=== PATIENT | female | born 1990 | race Caucasian/White ===

== ENCOUNTER 2024-02-17 08:14 | Emergency (ER) | payer MEDICAID, SELFPAY ==
--- NOTE | ~2024-02-17 | CT_ITS ---
EXAMINATION: CT ABDOMEN AND PELVIS WITH CONTRAST CLINICAL INFORMATION: Abdominal pain COMPARISON: None available. TECHNIQUE: Multidetector volumetric images were obtained from the superior aspect of the liver through the pubic symphysis following administration 85 mL of Omnipaque 350 intravenous contrast. Sagittal and coronal reformatted images were obtained on the technologist's workstation. Oral contrast: No This CT examination was performed using dose optimization techniques as appropriate, variously including the following: *Automated exposure control *Adjustment of mA and/or kV according to patient size (this includes techniques or standardized protocols for targeted exams where dose is matched to indication/reason for exam; i.e. extremities or head) *Use of iterative reconstruction technique DLP: 354 mGy-cm FINDINGS: LUNG BASES: No acute airspace disease or gross pulmonary nodules in the included lungs. LIVER, GALLBLADDER, AND BILIARY TREE: Liver measures 17 cm. No focal mass. Portal vein and hepatic veins and intrahepatic portion of the IVC are patent. No intra or extra hepatic biliary ductal dilatation. No pericholecystic fluid collection or gallbladder wall thickening. PANCREAS: No enhancing lesion. No peripancreatic fluid collection. No main pancreatic ductal dilatation. SPLEEN: 8 cm. No focal mass. ADRENAL GLANDS: No nodular lesions. KIDNEYS AND URETERS: Normal enhancement of the renal parenchyma. No renal mass. No hydronephrosis. BLADDER: Fluid-filled nearly collapsed. GASTROINTESTINAL TRACT: There is diffuse concentric edematous wall/wall thickening with pericolonic edema pattern trace of fluid extending from the rectum to the splenic colonic flexure resulting in narrowed lumen. No diverticula. No peripheral enhancing fluid collection, peritoneal cavity. No intestinal obstruction pattern. No pneumatosis intestinalis. No pneumoperitoneum. I cannot clearly identify the appendix, no pericecal edema pattern. ABDOMINAL WALL: No gross hernia. LYMPH NODES: No gross lymphadenopathy, retroperitoneal. VASCULAR: No aneurysm or dissection, abdominal aorta. PELVIC VISCERA: Dominant follicle, right adnexa. OSSEOUS STRUCTURES: No acute fracture or listhesis. Spina bifida occulta, S1 and S2. CT/CT abdomen pelvis w IV con IMPRESSION: Concerning ulcerative colitis versus inflammatory bowel disease involving the rectosigmoid colon and to a lesser extent left hemicolon. Fleischner guidelines were followed. Electronically signed by: Arcenio Woodard MD 02/17/2024 10:10 AM EST
[2024-02-17 08:18] VITALS: BP 121/76; PULSE 106; RESP 18; TEMP 36.6; O2SAT 99; BMI 20.7
--- NOTE | 2024-02-17 08:27 | ED.GENADULT ---
HPI - General Adult General Chief complaint: Nausea/Vomiting/Diarrhea Stated complaint: Diarrhea, weakness Time Seen by Provider: 02/17/24 08:26 Source: patient and family (patient's mother) Mode of arrival: ambulatory Limitations: no limitations History of Present Illness ED Provider: Rupal Cooper PA-C HPI narrative: Patient is a 33 year old assigned female at with no reported medical history presenting to the emergency department today with diarrhea and intermittent abdominal pain. Patient states that over the last month she has had diarrhea. Patient states that she was being treated for a dental infection with clindamycin and has had diarrhea ever since. Patient states that she is having intermittent abdominal pain but none presently. Patient denies any dizziness, lightheadedness, nausea, vomiting, fever, chills, blurry vision, double vision, loss of vision, chest pain, difficulty breathing, shortness of breath, back pain, night sweats, pain with urination, increased urinary frequency, increased urinary urgency, blood in her urine or stool, syncope or a near syncopal episode, recent trauma or falls, bowel incontinence, bladder incontinence, or any other complaints at this time. Onset (ago): month(s) (1) Relieving factors: none Exacerbating factors: none Associated symptoms: denies other symptoms Treatments prior to arrival: none Related Data Previous Rx's ?Medication ?Instructions ?Recorded prednisone 20 mg tablet 20 mg PO DAILY 7 days #7 tabs 02/17/24 vancomycin 125 mg capsule 125 mg PO QID 10 days #40 caps 02/17/24 Allergies Allergy/AdvReac Type Severity Reaction Status Date / Time amoxicillin [AMOXICILLIN] Allergy Unknown HIVES Verified 02/17/24 08:20 Review of Systems Constitutional: Constitutional: Reports no additional constitutional complaints, Denies chills, Denies fever(s) and Denies night sweats Eyes: Eyes: Reports no additional eye complaints, Denies blurry vision, Denies change in vision, Denies diplopia, Denies eye discharge, Denies loss of vision and Denies eye pain ENT: Denies dizziness Cardiovascular: Cardiovascular: Reports no additional cardiovascular complaints, Denies chest pain, Denies lightheadedness, Denies Loss of Consciousness and Denies dyspnea Respiratory: Respiratory: Reports no additional respiratory complaints and Denies dyspnea Gastrointestinal: Gastrointestinal: Reports no additional gastrointestinal complaints, Reports abdominal pain (intermittent), Denies melena, Denies hematochezia, Reports change in bowel habits, Reports change in stool character and Reports diarrhea Genitourinary: Genitourinary: Denies hematuria, Denies urinary frequency, Denies dysuria, Denies urinary incontinence, Denies urinary hesitancy and Denies urinary urgency Musculoskeletal: Musculoskeletal: Reports no additional musculoskeletal complaints, Denies numbness and Denies tingling Neurologic: Denies dizziness, Denies loss of vision, Denies numbness and Denies tingling Psychiatric: Psychiatric: Reports no additional psychiatric complaints Endocrine: Endocrine: Reports no additional endocrine complaints Hematologic/Lymphatic: Hematologic/Lymphatic: Reports no additional hematologic/lymphatic complaints Allergic/Immunologic: Allergic/Immunologic: Reports no additional allergic/immunologic complaints PMFSH Past Medical History Attestation statement: The following information was validated with the patient. (all information validated with the patient's mother) Source: old records reviewed, obtained from family (patient's mother provided additional history and confirmed the history provided by the patient) and nursing notes reviewed Social History Social History Advance Directives: No Advance Directives Information Provided: Yes Physical Exam ED Vital Signs: Vital Signs - 24 hr 02/17/24 08:18 02/17/24 09:59 Temperature 97.9 F 98.2 F Pulse Rate 106 H 89 Respiratory Rate 18 16 Blood Pressure 121/76 118/66 Pulse Oximetry 99 100 Oxygen Delivery Method Room Air Room Air BMI result Body Mass Index 20.7 Const General: cooperative, no acute distress, alert and awake Nutritional Appearance: well nourished Orientation/consciousness: patient oriented x3 Limitations: no limitations [facility] Head: Yes normal to inspection and Yes atraumatic Ears: hearing grossly normal bilaterally and external ears normal General nose exam: Normal external nose present, no nasal discharge noted and no epistaxis Face and sinus: Yes normal facial exam, No abrasion and No laceration Mouth: Normal oral and palatal mucosa present, no drooling and no muffled voice Eyes General: appearance normal, both eyes and all related structures Periorbital: periorbital findings normal Eyelids: Yes eyelids normal Conjunctivae: conjunctivae normal Pupils: Equal, round and reactive pupils present EOM: EOMs intact bilaterally Neck Neck: Yes normal visual inspection, Yes full ROM and Yes no lymphadenopathy Chest Chest palpation & inspection: normal inspection of the chest Resp Effort & Inspection: normal respiratory effort and able to speak in complete sentences GI Inspection: Yes normal to inspection Palpation (GI): Soft to palpation, not firm, nontender, no guarding and not rigid Neuro General: patient oriented x3 and moves all extremities Cranial nerves: Yes Equal, round and reactive pupils present Cognition (Neuro): normal cognition Extrem General: Yes normal to inspection, Yes full ROM and Yes capillary refill normal Psych Appearance: grossly normal Mental Status: mental status grossly normal Affect: normal affect Attitude: cooperative Thought process: Normal thought process present Thought content: Normal thought content present Insight: Good insight present (Psych) Medications Administered Discontinued Medications Generic Name Dose Route Start Last Admin Trade Name Freq PRN Reason Stop Dose Admin Metronidazole 500 mg in 100 mls @ 100 mls/hr 02/17/24 09:32 02/17/24 11:01 Flagyl IV 02/17/24 10:31 Infused ONCE ONE Infusion Iohexol 100 ml 02/17/24 09:48 02/17/24 09:49 Iohexol 350 Mg/Ml 100 Ml Infus..Btl IV 02/17/24 09:49 85 ml ONCE ONE Administration Potassium Chloride 40 meq 02/17/24 11:51 02/17/24 11:58 Potassium Chloride Packet 20 Meq Packet PO 02/17/24 11:52 40 meq ONCE ONE Administration Vancomycin HCl 125 mg 02/17/24 09:32 02/17/24 10:01 Vancomycin Hcl 125 Mg Capsule PO 02/17/24 09:33 125 mg ONCE ONE Administration Medical Decision Making Medical Decision Making [facility] Narrative: Patient is a 33 year old assigned female at with no reported medical history presenting to the emergency department today with diarrhea and intermittent abdominal pain. Patient's physical exam was as noted in the physical exam portion of this note. Patient's blood work showed an elevated WBC count of 23.3 but otherwise unremarkable. Patient's urine showed no acute process. Patient's stool was positive for C.Diff. Patient's abdomen/pelvis CT showed evidence of ulcerative colitis vs. inflammatory bowel disease. I explained my physical exam findings as well as all test results to the patient and the patient's mother. I answered all questions asked by the patient and the patient's mother. I stressed the importance of the patient taking her medication as directed (either prescribed or as the over the counter packaging recommends). I stressed the importance of the patient following up with her primary care provider and a GI specailist. I stressed the importance of the patient returning to the emergency department immediately if her symptoms were to worsen or if she were to develop any dizziness, shortness of breath, difficulty breathing, chest pain, blurry vision, loss of vision, nausea, vomiting, abdominal pain, fever, chills, back pain, or any other complaints. Patient and the patient's mother verbalized agreement and understanding with this treatment plan and discharge. Differential Diagnosis Differential Diagnoses: The differential diagnosis associated with the presentation includes Diarrhea Colitis Ulcerative colitis Abdominal pain C.Diff Admission/Observation Consideration of admission/observation: Escalation of care including admission/observation considered Patient would have been admitted to the hospital had her work up had any findings where hospital admission was appropriate and her clinical presentation warranted hospital admission. Lab Data [facility] Lab Attestation statement: I reviewed the patient's lab results. My interpretation of these results are in the [facility] Rationale portion of this note. 02/17/24 08:44 02/17/24 08:44 Labs: Lab Results 02/17/24 02/17/24 02/17/24 Range/Units 08:44 09:54 11:31 WBC 23.3 H (4.8-10.8) X10*3/uL RBC 4.52 (4.20-5.50) X10*6/uL Hgb 13.5 (12.0-16.0) g/dl Hct 40.1 (37.0-47.0) % MCV 88.7 (80.0-98.0) fL MCH 29.9 (27.0-33.0) pg MCHC 33.7 (31.0-35.0) g/dl RDW 12.2 (11.0-16.0) % Plt Count 258 (160-400) X10*3/uL MPV 9.1 L (9.4-12.3) fL Immature Gran % (Auto) 0.8 H (0.0-0.4) % Neut % (Auto) 87.9 H (45-73) % Lymph % (Auto) 3.7 L (20-40) % [place] % (Auto) 7.0 (2-11) % Eos % (Auto) 0.3 (0-4) % Baso % (Auto) 0.3 (0-2) % Lymph # (Auto) 0.9 L (1.2-4.9) X10*3/uL [place] # (Auto) 1.6 H (0.1-1.2) X10*3/uL Eos # (Auto) 0.1 (0.0-0.4) X10*3/uL Baso # (Auto) 0.1 (0.0-0.2) X10*3/uL Abs Immat Gran (auto) 0.19 H (0.00-0.03) X10*3/uL Absolute Neuts (auto) 20.4 H (2.0-8.3) x10*3/uL Absolute Nucleated RBC 0.000 (0.0-0.012) X10*3/uL Nucleated RBC % (auto) 0.0 (0.0-0.2) /100WBC Smear Tech's Comments VERIFIED Sodium 138 (135-145) mmol/L Potassium 3.2 L (3.3-5.1) mmol/L Chloride 106 (96-108) mmol/L Carbon Dioxide 21 L (22-29) mmol/L Anion Gap 14 (12-20) BUN 10 (9-16) mg/dL Creatinine 0.90 (0.5-1.4) mg/dL Estim Creat Clear Calc 82.5 Estimated GFR > 60 Random Glucose 110 (60-115) mg/dL Lactic Acid 0.8 (0.5-2.0) mmol/L Calcium 8.6 (8.4-10.2) mg/dL Magnesium 1.8 (1.6-2.6) mg/dL Total Bilirubin 1.6 H (0.0-1.0) mg/dL AST 15 (5-31) U/L ALT 14 (0-31) U/L Alkaline Phosphatase 63 (39-117) U/L Total Protein 6.7 (6.5-8.0) g/dL Albumin 3.9 (3.5-5.0) g/dL Beta HCG, Quant < 2 mIU/mL Urine Color Yellow Urine Appearance Clear Urine pH 5.5 (5.0-9.0) Ur Specific [place] >= 1.030 H (1.005-1.025) Urine Protein 30 (1+) H (Neg-Trace) mg/dL Urine Glucose (UA) Negative (Negative) mg/dL Urine Ketones 40 (Negative) mg/dL Urine Blood Negative (Negative) Urine Nitrite Negative (Negative) Ur Leukocyte Esterase Negative (Negative) Urine RBC 0-2 (0-2) /HPF Urine WBC 0-5 (0-5) /HPF Ur Squamous Epith Cells 11-20 (0-2) /HPF Urine Bacteria None Seen (None Seen) Hyaline Casts 0-2 (0-2) /LPF C. difficile Tox B Gene POSITIVE A* (Negative) Influenza Type A (PCR) NEGATIVE (Negative) Influenza Type B (PCR) NEGATIVE (Negative) RSV RNA Qual (PCR) NEGATIVE (Negative) SARS-CoV-2 RNA (RT-PCR) NEGATIVE (Negative) S. pyogenes GrpA TWYLA (Negative) 02/17/24 Range/Units 12:33 WBC (4.8-10.8) X10*3/uL RBC (4.20-5.50) X10*6/uL Hgb (12.0-16.0) g/dl Hct (37.0-47.0) % MCV (80.0-98.0) fL MCH (27.0-33.0) pg MCHC (31.0-35.0) g/dl RDW (11.0-16.0) % Plt Count (160-400) X10*3/uL MPV (9.4-12.3) fL Immature Gran % (Auto) (0.0-0.4) % Neut % (Auto) (45-73) % Lymph % (Auto) (20-40) % [place] % (Auto) (2-11) % Eos % (Auto) (0-4) % Baso % (Auto) (0-2) % Lymph # (Auto) (1.2-4.9) X10*3/uL [place] # (Auto) (0.1-1.2) X10*3/uL Eos # (Auto) (0.0-0.4) X10*3/uL Baso # (Auto) (0.0-0.2) X10*3/uL Abs Immat Gran (auto) (0.00-0.03) X10*3/uL Absolute Neuts (auto) (2.0-8.3) x10*3/uL Absolute Nucleated RBC (0.0-0.012) X10*3/uL Nucleated RBC % (auto) (0.0-0.2) /100WBC Smear Tech's Comments Sodium (135-145) mmol/L Potassium (3.3-5.1) mmol/L Chloride (96-108) mmol/L Carbon Dioxide (22-29) mmol/L Anion Gap (12-20) BUN (9-16) mg/dL Creatinine (0.5-1.4) mg/dL Estim Creat Clear Calc Estimated GFR Random Glucose (60-115) mg/dL Lactic Acid (0.5-2.0) mmol/L Calcium (8.4-10.2) mg/dL Magnesium (1.6-2.6) mg/dL Total Bilirubin (0.0-1.0) mg/dL AST (5-31) U/L ALT (0-31) U/L Alkaline Phosphatase (39-117) U/L Total Protein (6.5-8.0) g/dL Albumin (3.5-5.0) g/dL Beta HCG, Quant mIU/mL Urine Color Urine Appearance Urine pH (5.0-9.0) Ur Specific [place] (1.005-1.025) Urine Protein (Neg-Trace) mg/dL Urine Glucose (UA) (Negative) mg/dL Urine Ketones (Negative) mg/dL Urine Blood (Negative) Urine Nitrite (Negative) Ur Leukocyte Esterase (Negative) Urine RBC (0-2) /HPF Urine WBC (0-5) /HPF Ur Squamous Epith Cells (0-2) /HPF Urine Bacteria (None Seen) Hyaline Casts (0-2) /LPF C. difficile Tox B Gene (Negative) Influenza Type A (PCR) (Negative) Influenza Type B (PCR) (Negative) RSV RNA Qual (PCR) (Negative) SARS-CoV-2 RNA (RT-PCR) (Negative) S. pyogenes GrpA TWYLA Negative (Negative) Independent Interpretation I performed an independent interpretation of an: CT Scan Interpretation: My interpretation is in agreement with the radiologist's impression of this imaging study. EXAMINATION: CT ABDOMEN AND PELVIS WITH CONTRAST CLINICAL INFORMATION: Abdominal pain COMPARISON: None available. TECHNIQUE: Multidetector volumetric images were obtained from the superior aspect of the liver through the pubic symphysis following administration 85 mL of Omnipaque 350 intravenous contrast. Sagittal and coronal reformatted images were obtained on the technologist's workstation. Oral contrast: No This CT examination was performed using dose optimization techniques as appropriate, variously including the following: *Automated exposure control *Adjustment of mA and/or kV according to patient size (this includes techniques or standardized protocols for targeted exams where dose is matched to indication/reason for exam; i.e. extremities or head) *Use of iterative reconstruction technique DLP: 354 mGy-cm FINDINGS: LUNG BASES: No acute airspace disease or gross pulmonary nodules in the included lungs. LIVER, GALLBLADDER, AND BILIARY TREE: Liver measures 17 cm. No focal mass. Portal vein and hepatic veins and intrahepatic portion of the IVC are patent. No intra or extra hepatic biliary ductal dilatation. No pericholecystic fluid collection or gallbladder wall thickening. PANCREAS: No enhancing lesion. No peripancreatic fluid collection. No main pancreatic ductal dilatation. SPLEEN: 8 cm. No focal mass. ADRENAL GLANDS: No nodular lesions. KIDNEYS AND URETERS: Normal enhancement of the renal parenchyma. No renal mass. No hydronephrosis. BLADDER: Fluid-filled nearly collapsed. GASTROINTESTINAL TRACT: There is diffuse concentric edematous wall/wall thickening with pericolonic edema pattern trace of fluid extending from the rectum to the splenic colonic flexure resulting in narrowed lumen. No diverticula. No peripheral enhancing fluid collection, peritoneal cavity. No intestinal obstruction pattern. No pneumatosis intestinalis. No pneumoperitoneum. I cannot clearly identify the appendix, no pericecal edema pattern. ABDOMINAL WALL: No gross hernia. LYMPH NODES: No gross lymphadenopathy, retroperitoneal. VASCULAR: No aneurysm or dissection, abdominal aorta. PELVIC VISCERA: Dominant follicle, right adnexa. OSSEOUS STRUCTURES: No acute fracture or listhesis. Spina bifida occulta, S1 and S2. CT/CT abdomen pelvis w IV con IMPRESSION: Concerning ulcerative colitis versus inflammatory bowel disease involving the rectosigmoid colon and to a lesser extent left hemicolon. Fleischner guidelines were followed. Electronically signed by: Arcenio Woodard MD 02/17/2024 10:10 AM [facility] Dictated By: Arcenio Veliz MD Signed By: Electronically signed by Arcenio Hamilton MD 02/17/24 1010 Radiology Impression Discussion of test interpretation with radiology: I have reviewed the radiologist's reading. Independent Historian Clinical information obtained from an independent historian. History obtained from or confirmed by: Parent (patient's mother provided additional history and confirmed the history provided by the patient) Prescription Management I considered prescription management with: Antibiotic (patient prescribed vancomycin for C.Diff infection) Critical Care Time Critical Care Time Critical Care Time: Yes Total Critical Care Time: 48 Attestation: I spent 48 minutes of Critical Care Time with this patient. This does not include time spent on separately reported billable procedures. Discharge Plan Discharge Clinical Impression: Clostridium difficile infection, Colitis Patient Disposition: Home, Self-Care Instructions: C. Diff (Clostridioides Difficile) Infection (ED) Additional Instructions: Take your antibiotic as prescribed. Follow up with your primary care provider and a GI specialist. Please see attached instructions about C.Diff and how to best avoid infecting others in the home. Return to the emergency department immediately if your symptoms worsen or if you develop any dizziness, shortness of breath, difficulty breathing, chest pain, blurry vision, loss of vision, nausea, vomiting, abdominal pain, fever, chills, back pain, or any other complaints. Prescriptions: New vancomycin 125 mg capsule 125 mg PO QID 10 Days Qty: 40 0RF prednisone 20 mg tablet 20 mg PO DAILY 7 Days Qty: 7 0RF Referrals: [facility] [place] Gastroenterology Services [Provider Group] (Call to establish and follow up with a GI specialist regarding your possible colitis and your C.Diff infection. ) [facility] [place] Family Medicine [Provider Group] (Call to establish and follow up with a primary care provider. If you already have a primary care provider, please follow up with them.) [facility] [place] Primary Care[facility]oaquin [Provider Group] (Call to establish and follow up with a primary care provider. If you already have a primary care provider, please follow up with them.) [facility] [place] Primary CareYonny [Provider Group] (Call to establish and follow up with a primary care provider. If you already have a primary care provider, please follow up with them.) Stand Alone Forms: Work/School Release Print Language: Lithuanian
[2024-02-17 08:53] LABS: Basophils Absolute Auto 0.1 X10*3/uL (0.0-0.2); Basophils Percent Auto 0.3 % (0-2); Eosinophils Absolute Auto 0.1 X10*3/uL (0.0-0.4); Eosinophils Percent Auto 0.3 % (0-4); Hematocrit 40.1 % (37.0-47.0); Hemoglobin 13.5 g/dl (12.0-16.0); Imm Gran Abs Auto 0.19 X10*3/uL (0.00-0.03); Imm Gran Pct Auto 0.8 % (0.0-0.4); Lymphocytes Absolute Auto 0.9 X10*3/uL (1.2-4.9); Lymphocytes Percent Auto 3.7 % (20-40); MANUAL DIFF FLAG SCAN; Mean Corpuscular HGB Conc 33.7 g/dl (31.0-35.0); Mean Corpuscular Hemoglobin 29.9 pg (27.0-33.0); Mean Corpuscular Volume 88.7 fL (80.0-98.0); Mean Platelet Volume 9.1 fL (9.4-12.3); Monocytes Absolute Auto 1.6 X10*3/uL (0.1-1.2); Neutrophils Absolute Auto 20.4 x10*3/uL (2.0-8.3); Neutrophils Percent Auto 87.9 % (45-73); Platelet Count 258 X10*3/uL (160-400); Red Blood Count 4.52 X10*6/uL (4.20-5.50); Red Cell Distribution Width 12.2 % (11.0-16.0); SCAN SMEAR FLAG 1; White Blood Count 23.3 X10*3/uL (4.8-10.8)
[2024-02-17 09:07] LABS: Alanine Aminotransferase 14 U/L (0-31); Albumin Level 3.9 g/dL (3.5-5.0); Alkaline Phosphatase 63 U/L (39-117); Anion Gap 14 (12-20); Aspartate Amino Transferase 15 U/L (5-31); Bilirubin Total 1.6 mg/dL (0.0-1.0); Blood Urea Nitrogen 10 mg/dL (9-16); Calcium 8.6 mg/dL (8.4-10.2); Carbon Dioxide 21 mmol/L (22-29); Chloride 106 mmol/L (96-108); Creatinine Clr Calc Pharmacy 82.5; Estimated Glomerular Filt Rate > 60; Glucose Random 110 mg/dL (60-115); Magnesium 1.8 mg/dL (1.6-2.6); Potassium 3.2 mmol/L (3.3-5.1); Sodium 138 mmol/L (135-145); Total Protein 6.7 g/dL (6.5-8.0)
[2024-02-17 09:15] LABS: HCG Quantitative < 2 mIU/mL
[2024-02-17 09:22] LABS: SLIDE REVIEW VERIFIED
[2024-02-17 09:31] LABS: Influenza A PCR NEGATIVE (Negative); Influenza B PCR NEGATIVE (Negative); Resp Syncy Virus RNA Qual PCR NEGATIVE (Negative); SARS COV2 PCR INHOUSE NEGATIVE (Negative)
[2024-02-17] MEDS: iohexoL 350 MG/ML 100 ML INFUS..BTL IV (09:49)
--- NOTE | 2024-02-17 09:50 | PC.NURSE ---
Patient to radiology.
[2024-02-17 09:59] VITALS: BP 118/66; PULSE 89; RESP 16; TEMP 36.8; O2SAT 100
[2024-02-17] MEDS: vancomycin HCL 125 MG CAPSULE PO (10:01)
[2024-02-17] MEDS: metroNIDAZOLE/NS 500 MG/100 ML PIGGYBACK 100 MG IV (10:01)
[2024-02-17 10:15] LABS: Lactic Acid 0.8 mmol/L (0.5-2.0)
[2024-02-17 11:42] LABS: Appearance Urine Clear; Color Urine Yellow; Glucose Urine UA Negative (Negative); Leukocyte Esterase Urine Negative (Negative); Nitrite Urine Negative (Negative); PH 5.5 (5.0-9.0); Specific Gravity - Urine >= 1.030 (1.005-1.025); UMIC TRIGGER UACC YES; Urine Blood Negative (Negative); Urine Ketones 40 mg/dL (Negative); Urine Protein 30 (1+) mg/dL (Neg-Trace)
[2024-02-17 11:51] LABS: Bacteria Urine None Seen (None Seen); Hyaline Casts Urine 0-2 /LPF (0-2); RBC Urine 0-2 /HPF (0-2); WBC Urine 0-5 /HPF (0-5)
[2024-02-17] MEDS: Potassium Chloride Packet 20 MEQ PACKET 40 MEQ PO (11:58)
--- NOTE | 2024-02-17 12:02 | PC.NURSE ---
pt medicated per MAR with 40meq KCL for K+ 3.2
[2024-02-17 12:44] LABS: IDNOW Serial# 58CA691E; Strep A Nucleic Acid Negative (Negative)
[2024-02-17 12:47] LABS: CDiff Gene PCR POSITIVE (Negative)
[2024-02-17 13:56] LABS: CDiff Toxin Positive (Negative)
[2024-02-17 13:57] LABS: CDIFF Internal ctrl Dots and bkg OK (V)
[2024-02-17 14:16] VITALS: BP 118/66; PULSE 89; RESP 16; TEMP 36.8; O2SAT 100
[2024-02-18 10:52] LABS: Adenovirus F 40/41 Not Detected (Not Detect.); Astrovirus Not Detected (Not Detect.); Campylobacter Not Detected (Not Detect.); Cryptosporidium Not Detected (Not Detect.); Cyclospora cayetanensis Not Detected (Not Detect.); E. coli EAEC Not Detected (Not Detect.); E. coli EPEC Not Detected (Not Detect.); E. coli ETEC Not Detected (Not Detect.); E. coli STEC Not Detected (Not Detect.); Entamoeba histolytica Not Detected (Not Detect.); Giardia lamblia Not Detected (Not Detect.); Norovirus GI/GII Not Detected (Not Detect.); Plesiomonas shigelloides Not Detected (Not Detect.); Rotavirus A Not Detected (Not Detect.); Salmonella Not Detected (Not Detect.); Sapovirus Not Detected (Not Detect.); Shigella sp./EIEC Not Detected (Not Detect.); Vibrio Not Detected (Not Detect.); Vibrio Cholerae Not Detected (Not Detect.); Yersinia enterocolitica Not Detected (Not Detect.)
== END 2024-02-17 14:18 | disposition home or self-care (01) ==
PROVIDERS: Physician Assistant Medical; Emergency Provider Emergency Medicine
DX: A04.72 Enterocolitis due to Clostridium difficile, not specified as recurrent (principal); Z03.818 Encounter for observation for suspected exposure to other biological agents ruled out; J45.909 Unspecified asthma, uncomplicated
CPT/HCPCS: 0241U; 36415; 74177; 80053; 81001; 83605; 83735; 84702; 85025; 87040; 87324; 87493; 87507; 87651; 96365; 99283; 99284; J1836; Q9967

== ENCOUNTER → 2024-02-17 09:24 | Outpatient (BNV) | payer MEDICAID, SELFPAY | PROVIDERS: Emergency Provider Emergency Medicine; Visit Provider Radiology Diagnostic Radiology | DX: R10.9 Unspecified abdominal pain (principal) | CPT/HCPCS: 74177 ==

== ENCOUNTER 2024-02-19 05:52 | Emergency (ER) | payer MEDICAID, SELFPAY ==
[2024-02-19 05:57] VITALS: BP 127/68; PULSE 78; RESP 20; TEMP 36.8; O2SAT 98; BMI 21.0
--- NOTE | 2024-02-19 06:19 | PC.NURSE ---
pt from triage, assume care ot pt at this time
--- NOTE | 2024-02-19 06:29 | ED.ALLEREA ---
HPI - Allergic Reaction General Chief complaint: Allergic Reaction Stated complaint: hives Time Seen by Provider: 02/19/24 06:27 Source: patient Mode of arrival: ambulatory Limitations: no limitations History of Present Illness ED Provider: Paul aSavedra PA-C HPI narrative: 33 yo female presents to the ER for evaluation of hives. She was seen here 2 days ago for abdominal pain, diarrhea and hives. She was found to have C. diff colitis after being on Clindamycin for a tooth infection. She states she has had intermittent hives throughout her body for the last couple of weeks. this morning she developed diffuse red, itchy, raised hives on her back that took up almost her entire back, she developed flushing and shortness of breath so mom brought her to the ER for evaluation. She has not taken Benadryl since earlier this week as she did not think she can combine it with her oral vancomycin. Only allergic reaction history is hives to amoxicillin. She denies being on amoxicillin recently. She denies any facial swelling, lip swelling, mouth swelling. She not take any medication for the hives and they are almost resolved here. She is feeling better. Overall her abdominal pain and diarrhea are improving with the oral vancomycin as well. MD complaint: hives Onset (ago): week(s) Exposure: unknown Symptoms: rash and itching Severity: moderate Treatment prior to arrival: none Previous Allergic Reaction History: prior ED visit(s) Related Data Previous Rx's ?Medication ?Instructions ?Recorded prednisone 20 mg tablet 20 mg PO DAILY 7 days #7 tabs 02/17/24 vancomycin 125 mg capsule 125 mg PO QID 10 days #40 caps 02/17/24 cetirizine 10 mg tablet (Zyrtec) 10 mg PO DAILY #14 tabs 02/19/24 prednisone 10 mg tablets in a dose See Taper PO DAILY #20 ea 02/19/24 pack Allergies Allergy/AdvReac Type Severity Reaction Status Date / Time amoxicillin [AMOXICILLIN] Allergy Unknown HIVES Verified 02/19/24 06:01 Review of Systems Review of Systems: Yes all other systems are reviewed and are negative PMFSH Social History Social History Smoked in Last 30 Days: No Use of substances other than those prescribed or required for medical reasons: No Advance Directives: No Advance Directives Information Provided: No Do you have a plan to hurt others: No Plan Physical Exam ED Vital Signs: Vital Signs - 24 hr 02/19/24 05:57 Temperature 98.2 F Pulse Rate 78 Respiratory Rate 20 Blood Pressure 127/68 Pulse Oximetry 98 Oxygen Delivery Method Room Air BMI result Body Mass Index 21.0 Appearance: Alert. Oriented X3. No acute distress. Head: normocephalic, atraumatic. Eyes: Pupils equal, round and reactive to light. ENT: Pharynx normal. No tonsillar swelling or exudate. Neck: Normal inspection. Neck supple. CVS: Normal heart rate and rhythm. Pulses normal. Respiratory: No respiratory distress. Breath sounds normal. Abdomen: Flat, Soft and nontender. +BS x4 Skin: Skin warm and dry. Normal skin color. Normal skin turgor. Extremities: No lower extremity edema. No joint swelling. Mild areas of flat erythema on the abdomen where hives were present previously. Neuro/psych: Oriented X 3. No motor deficit. No sensory deficit. CN II-XII intact. Normal speech and cognition. Medical Decision Making Medical Decision Making MDM Narrative: 33-year-old female with recently diagnosed C diff colitis presents to the ER for evaluation of hives intermittently for the last couple of weeks. Unknown etiology. hives come and go. She has been on low-dose prednisone for the last 2 days. Photos on her phone or reviewed, she has large, urticarial wheals scattered throughout her body intermittently. No facial involvement. Vital signs are stable on arrival. Symptoms are improved without treatment. Will plan to start a prednisone taper, daily Zyrtec and p.r.n. Benadryl. Patient counseled that Benadryl is safe to take while she is on oral vancomycin, she was unaware of this. Comfortable discharge home. She should follow-up with her primary care doctor as well as GI, her CT scan was abnormal and this needs following up. Differential Diagnosis Differential Diagnoses: The differential diagnosis associated with the presentation includes Idiopathic urticaria, allergic reaction, eczema, contact dermatitis Independent Historian Clinical information obtained from an independent historian. History obtained from or confirmed by: Parent External Record Review External record reviewed: Outpatient record, Prior outpatient labs and Prior outpatient radiology Prescription Management I considered prescription management with: Other ( Antihistamine, prednisone) Critical Care Time Critical Care Time Critical Care Time: No Discharge Plan Discharge Clinical Impression: Urticaria Patient Disposition: Home, Self-Care Instructions: Urticaria (ED) Additional Instructions: START the higher dose prednisone taper today. complete the entire course continue your vancomycin START cetirizine daily x2 weeks take benadry as needed for hives and itching. it is safe to take with all of these other medications follow up with your PCP and GI If you develop new or worsening symptoms call 911 or come back to the ER for further evaluation. Prescriptions: New prednisone 10 mg tablets,dose pack See Taper PO DAILY Qty: 20 0RF Taper: Prednisone 40 mg daily for 2 Days and 0 Hour 30 mg daily for 2 Days and 0 Hour 20 mg daily for 2 Days and 0 Hour 10 mg daily for 2 Days and 0 Hour cetirizine [Zyrtec] 10 mg tablet 10 mg PO DAILY Qty: 14 0RF No Action vancomycin 125 mg capsule 125 mg PO QID 10 Days Qty: 40 0RF prednisone 20 mg tablet 20 mg PO DAILY 7 Days Qty: 7 0RF [place] [facility] [place] [facility] [place] Group] (c diff colitis. abnormal CT scan ) Interventions: ED Discharge Assessment Last Done: 02/19/24 07:11 Print Language: Indonesian
--- NOTE | 2024-02-19 06:59 | PC.NURSE ---
report given Frieda ALMEIDA
[2024-02-19 07:11] VITALS: BP 120/62; PULSE 76; RESP 18; TEMP 36.8; O2SAT 98
== END 2024-02-19 07:12 | disposition home or self-care (01) ==
PROVIDERS: Emergency Provider Emergency Medicine
DX: L50.9 Urticaria, unspecified (principal)
CPT/HCPCS: 99283; 99284

== ENCOUNTER 2024-02-23 08:57 | Outpatient (REF) | payer MEDICAID, SELFPAY ==
[2024-02-23 13:01] LABS: C Reactive Protein 0.14 mg/dL (< or = 0.50)
[2024-02-23 13:10] LABS: TSH reflex Free T4 1.05 uIU/mL (0.32-4.0)
[2024-02-23 13:25] LABS: Vitamin B12 719 pg/mL (200-900)
[2024-02-28 16:24] LABS: Vitamin D 25-OH, D2 <4 ng/mL; Vitamin D 25-OH, D3 37 ng/mL; Vitamin D 25-OH, Total 37 ng/mL (30-100)
[2024-02-29 21:23] LABS: Transglutaminase Ab IgG <1.0 U/mL; Transglutaminase IgA <1.0 U/mL
== END 2024-02-23 08:58 | disposition home or self-care (01) ==
LOC: HO.LAB 08:57
PROVIDERS: Visit Provider Nurse Practitioner Family
DX: K58.9 Irritable bowel syndrome, unspecified (principal); K59.00 Constipation, unspecified; E55.9 Vitamin D deficiency, unspecified; K21.9 Gastro-esophageal reflux disease without esophagitis; R10.9 Unspecified abdominal pain; A49.8 Other bacterial infections of unspecified site; R14.0 Abdominal distension (gaseous); A09 Infectious gastroenteritis and colitis, unspecified
CPT/HCPCS: 36415; 82306; 82607; 82746; 84443; 86003; 86140; 86364; 99202

== ENCOUNTER 2024-02-23 08:57 | Outpatient (AMB) | payer MEDICAID, SELFPAY ==
[2024-02-23 09:01] VITALS: BP 118/68; PULSE 84; O2SAT 100; BMI 21.1
--- NOTE | 2024-02-23 09:01 | A.OFFVIS_ITS ---
Vital Signs 02/23/24 09:01 Height 5 ft 6 in Weight 130 lb 8.218 oz BMI 21.1 BP 118/68 Blood Pressure Location Lt brachial Position Sitting Pulse 84 Pulse Source Pulse Oximeter Pulse Oximetry (%) 100 Oxygen Delivery Method Room Air Intake Visit Reasons: ED follow CDIFF and Colitis Intake Note: Relevant Flags or Indicators ? Requires Saloonkeeper? Roxana Kala presents in office today for a scheduled initial assessment. CC; Pt received recent labs and imaging within the last week. No meds ordered. Pt was seen in the ED recently for c.diff infection and possible colitis. Pt states that this started x1 mos ago. Pt had a dental infection and received amoxicillin which they believe caused the issue. Pt also reports having moderate to severe hives recently which they believe was caused by the amoxicillin, pt does have photos. Relevant GI Sx as reported per pt? Nausea ? Fecal abnormalities o?? Diarrhea ? Bloating ? Abdominal distention ? Hx of any recent surgeries? Dental. Saloonkeeper Required: No Accompanied by: Family/Other Allergies amoxicillin [AMOXICILLIN] Allergy (Unknown, Verified 02/23/24 09:02) HIVES HPI HPI ED follow CDIFF and Colitis: Details: 33-year-old female with no significant past medical history is here today for initial consultation. Patient reports that she was treated in ER on February 16. Patient was diagnosed with C diff colitis. Patient was put on prednisone currently is feeling better. Patient prior to having diarrhea was on antibiotics for 2 weeks, placed by her dentist after dental surgery that was done in December. Few days after starting antibiotics she started experiencing abdominal cramps, diarrhea. Patient also developed hives. 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 Patient was in [place] and had to drive home when she started to feel sick. Patient d enies being with anyone who had similar symptoms. Patient denies any nausea or vomiting. Denies any melena, hematochezia, unintentional weight loss or ribbon like stools. Reports postprandial abdominal bloating. Patient has been washing her hands, contact precautions maintained by whole family. No one else in the family has similar symptoms. Patient is here today with her mom. Patient reports that in the past few days her diarrhea subsided. Patient does admit that she did had in the past frequent postprandial loose stools. [facility] Medical History (Updated 02/23/24 @ 09:12 by ROSIO Jeong) Asthma Surgical History (Updated 02/23/24 @ 09:11 by ROSIO Jeong) Hx of appendectomy (~2005) History of dental surgery (~12/2023) Family History (Updated 02/23/24 @ 09:13 by ROSIO Jeong) Mother Breast cancer Maternal Aunt Colon cancer Paternal Aunt Stomach cancer Maternal Grandmother Diabetes Social History (Updated 02/23/24 @ 09:14 by ROSIO Jeong) Alcohol intake: never Patient Tobacco Use Status: Never used Tobacco Review of Systems Const Denies weight gain and Denies weight loss ENT Reports no additional complaints, Denies dysphagia and Denies odynophagia Card Reports no additional complaints Resp Reports no additional complaints GI Reports abdominal pain (cramping), Denies belching, Denies melena, Reports bloating, Denies change in bowel habits, Denies dysphagia, Denies excessive flatus, Denies dyspepsia, Denies heartburn, Denies diarrhea, Reports loose stools, Denies nausea, Denies odynophagia and Denies vomiting Reports no additional complaints Musc Reports no additional complaints Neuro Reports no additional complaints Psych Reports no additional complaints Endo Reports no additional complaints Physical Exam Vital Signs: Last Vital Signs Pulse 84 02/23/24 09:01 BP 118/68 02/23/24 09:01 Pulse Ox 100 02/23/24 09:01 Oxygen Delivery Method Room Air 02/23/24 09:01 BMI result Body Mass Index 21.1 Const General: healthy appearing, no acute distress and well developed Nutritional Appearance: well nourished Orientation/consciousness: patient oriented x3 Resp Effort & Inspection: normal respiratory effort, able to speak in complete sentences, no tracheal deviation and symmetric chest movement Auscultation: clear to auscultation bilaterally Cardio Rate: regular rate GI Inspection: Yes normal to inspection and No distended Palpation (GI): Soft to palpation, not firm, nontender and No hepatosplenomegaly present Auscultation: normal bowel sounds General: Yes no CVA tenderness Back/Spine/Pelvis Back: no CVA tenderness Skin General skin exam: elasticity normal, turgor normal and dry skin Neuro General: patient oriented x3 Psych Appearance: grossly normal Mental Status: mental status grossly normal Results Reviewed Results Reviewed: Laboratory Tests 02/17/24 02/17/24 08:44 11:31 WBC 23.3 H C. difficile Tox B Gene POSITIVE A* C. difficile Toxin A&B Positive A* CT OF ABDOMEN AND PELVIS FINDINGS: LUNG BASES: No acute airspace disease or gross pulmonary nodules in the included lungs. LIVER, GALLBLADDER, AND BILIARY TREE: Liver measures 17 cm. No focal mass. Portal vein and hepatic veins and intrahepatic portion of the IVC are patent. No intra or extra hepatic biliary ductal dilatation. No pericholecystic fluid collection or gallbladder wall thickening. PANCREAS: No enhancing lesion. No peripancreatic fluid collection. No main pancreatic ductal dilatation. SPLEEN: 8 cm. No focal mass. ADRENAL GLANDS: No nodular lesions. KIDNEYS AND URETERS: Normal enhancement of the renal parenchyma. No renal mass. No hydronephrosis. BLADDER: Fluid-filled nearly collapsed. GASTROINTESTINAL TRACT: There is diffuse concentric edematous wall/wall thickening with pericolonic edema pattern trace of fluid extending from the rectum to the splenic colonic flexure resulting in narrowed lumen. No diverticula. No peripheral enhancing fluid collection, peritoneal cavity. No intestinal obstruction pattern. No pneumatosis intestinalis. No pneumoperitoneum. I cannot clearly identify the appendix, no pericecal edema pattern. ABDOMINAL WALL: No gross hernia. LYMPH NODES: No gross lymphadenopathy, retroperitoneal. VASCULAR: No aneurysm or dissection, abdominal aorta. PELVIC VISCERA: Dominant follicle, right adnexa. OSSEOUS STRUCTURES: No acute fracture or listhesis. Spina bifida occulta, S1 and S2. CT/CT abdomen pelvis w IV con IMPRESSION: Concerning ulcerative colitis versus inflammatory bowel disease involving the rectosigmoid colon and to a lesser extent left hemicolon. Assessment & Plan Assessment & Plan (1) Clostridium difficile infection: Code(s): A49.8 - Other bacterial infections of unspecified site Category: Medical (2) Colitis: Code(s): K52.9 - Noninfective gastroenteritis and colitis, unspecified Category: Medical (3) Diarrhea: Code(s): R19.7 - Diarrhea, unspecified Qualifiers: Diarrhea type: infectious Qualified Code(s): A09 - Infectious gastroenteritis and colitis, unspecified (4) Postprandial abdominal bloating: Code(s): R14.0 - Abdominal distension (gaseous) Plan Will recheck for C diff 1 week after treatment. Most likely C diff colitis versus ulcerative colitis. No family history of IBD Will check her thyroid panel, vitamin B12, folate, transglutaminase. Will do RAST allergen as patient does have multiple allergies to different food and wants to know food to avoid. Will check fecal calprotectin to rule out IBD, however patient weight with stool study until she no longer has diarrhea or at least we or 2 after treatment with antibiotics. Patient will be sent in the near future for colonoscopy. Discussed with patient low FODMAP diet, list of food recommended as well as list of food to avoid given to patient. Patient will return in the office in 2 months, sooner on as needed basis. Both patient and her mom are agreeable to plan of care and verbalizes understanding of instructions. She was given the opportunity to ask questions and all questions answered. Thank you for allowing me to participate in her care. Orders: Orders TSH reflex Free T4 Today K59.00 - Constipation, unspecified CDiff Gene PCR Today R19.7 - Diarrhea, unspecified Vitamin B12 and Folate Today R19.7 - Diarrhea, unspecified Calprotectin, Fecal Today R15.9 - Full incontinence of feces Transglutaminase Ab IgG Today R10.9 - Unspecified abdominal pain Rast Allergen Today K21.9 - Gastro-esophageal reflux disease without esophagitis C Reactive Protein Today K58.9 - Irritable bowel syndrome, unspecified Vitamin D 25-OH (D2 and D3) Today E55.9 - Vitamin D deficiency, unspecified Transglutaminase IgA Today R10.9 - Unspecified abdominal pain Coding Level of Care Code New Pt Level 4 (49553) Diagnoses Clostridium difficile infection A49.8 Colitis K52.9 Diarrhea of infectious origin A09 Diarrhea type: infectious Postprandial abdominal bloating R14.0 Time Spent (min) 45 Comment 30 minutes spent with patient and additional 10 minutes spent reviewing her records
== END 2024-02-23 10:01 | disposition home or self-care (01) ==
PROVIDERS: Visit Provider Nurse Practitioner Family
DX: A49.8 Other bacterial infections of unspecified site (principal); K52.9 Noninfective gastroenteritis and colitis, unspecified; R14.0 Abdominal distension (gaseous)
CPT/HCPCS: 99204

== ENCOUNTER 2024-02-24 09:36 | Outpatient (REF) | payer MEDICAID, SELFPAY ==
[2024-02-24 10:42] LABS: CDiff Gene PCR NEGATIVE (Negative)
[2024-03-03 03:23] LABS: Calprotectin, Fecal 50 mcg/g
== END 2024-02-24 09:37 | disposition home or self-care (01) ==
LOC: HO.LNP 09:36
PROVIDERS: Visit Provider Nurse Practitioner Family
DX: R19.7 Diarrhea, unspecified (principal); R15.9 Full incontinence of feces
CPT/HCPCS: 83993; 87493

== ENCOUNTER 2024-04-26 13:34 | Outpatient (AMB) | payer MEDICAID, SELFPAY ==
--- NOTE | 2024-04-26 13:43 | MHC.OFFVIS ---
Vital Signs 04/26/24 14:00 Height 5 ft 6 in Weight 131 lb 6.328 oz BMI 21.2 BP 122/72 Blood Pressure Location Lt brachial Position Sitting Pulse 76 Pulse Source Pulse Oximeter Pulse Oximetry (%) 100 Oxygen Delivery Method Room Air Intake Visit Reasons: 2 month follow up Intake Note: ESTABLISHED PATIENT - 2 mos FUV for C Diff infection. Labs done. Chief Complaint; Had been doing well until the last 2-3 days. Pt reports new onset of diarrhea, gen abd discomfort, weakness + malaise, nausea w/o vomiting. Pt confirms that they did complete abx treatment as instructed for c diff. Electronics Engineering Technologist Required: No Accompanied by: Self / Same As Patient Allergies amoxicillin [AMOXICILLIN] Allergy (Unknown, Verified 02/23/24 09:02) HIVES HPI HPI 2 month follow up: Details: LAST VISIT: Clostridium difficile infection Colitis Diarrhea Postprandial abdominal bloating Plan Will recheck for C diff 1 week after treatment. Most likely C diff colitis versus ulcerative colitis. No family history of IBD Will check her thyroid panel, vitamin B12, folate, transglutaminase. Will do RAST allergen as patient does have multiple allergies to different food and wants to know food to avoid. Will check fecal calprotectin to rule out IBD, however patient weight with stool study until she no longer has diarrhea or at least we or 2 after treatment with antibiotics. Patient will be sent in the near future for colonoscopy. Discussed with patient low FODMAP diet, list of food recommended as well as list of food to avoid given to patient. Patient will return in the office in 2 months, sooner on as needed basis. Both patient and her mom are agreeable to plan of care and verbalizes understanding of instructions. She was given the opportunity to ask questions and all questions answered. ? Thank you for allowing me to participate in her care. Orders Orders TSH reflex Free T4 Today K59.00 CDiff Gene PCR Today R19.7 Vitamin B12 and Folate Today R19.7 Calprotectin, Fecal Today R15.9 Transglutaminase Ab IgG Today R10.9 Rast Allergen Today K21.9 C Reactive Protein Today K58.9 Vitamin D 25-OH (D2 and D3) Today E55.9 Transglutaminase IgA Today R10.9 TODAY'S VISIT Patient is here today for follow-up. Patient reports that she has been feeling quite well until 2 days ago. Patient states that she was at the gym became feeling tired started to have chills and abdominal cramping. Patient had diarrhea as well as nausea. Patient denies vomiting. Denies melena, hematochezia. However patient reports that she does not feel like she has a good appetite. Patient is worry that this is again C diff. Patient was not on any antibiotics recently. We ruled out inflammatory bowel disease with labs last visit. Patient cleared C diff with antibiotics back in January. Patient reports that she is getting ready to go back to the [facility] in [place]. Patient denies any dyspepsia, dysphagia or odynophagia. Symptoms are starting to get better now. Patient thinks that maybe it is a 24-48 hours virus. Patient started taking probiotics. Patient denies any fever or chills. [facility] Medical History Asthma Surgical History Hx of appendectomy (~2005) History of dental surgery (~12/2023) Family History Mother Breast cancer Maternal Aunt Colon cancer Paternal Aunt Stomach cancer Maternal Grandmother Diabetes Social History Alcohol intake: never Patient Tobacco Use Status: Never used Tobacco Review of Systems Const Denies weight gain and Denies weight loss ENT Reports no additional complaints, Denies dysphagia and Denies odynophagia Card Reports no additional complaints Resp Reports no additional complaints GI Reports abdominal pain, Denies belching, Denies melena, Denies bloating, Denies change in bowel habits, Denies dysphagia, Denies excessive flatus, Denies dyspepsia, Denies heartburn, Denies diarrhea, Reports loose stools, Reports nausea, Denies odynophagia and Denies vomiting Reports no additional complaints Musc Reports no additional complaints Neuro Reports no additional complaints Psych Reports no additional complaints Endo Reports no additional complaints Physical Exam Vital Signs: Last Vital Signs Pulse 76 04/26/24 14:00 BP 122/72 04/26/24 14:00 Pulse Ox 100 04/26/24 14:00 Oxygen Delivery Method Room Air 04/26/24 14:00 BMI result Body Mass Index 21.2 Const General: healthy appearing, no acute distress and well developed Nutritional Appearance: well nourished Orientation/consciousness: patient oriented x3 Resp Effort & Inspection: normal respiratory effort, able to speak in complete sentences, no tracheal deviation and symmetric chest movement Auscultation: clear to auscultation bilaterally Cardio Rate: regular rate GI Inspection: Yes normal to inspection and No distended Palpation (GI): Soft to palpation, not firm, nontender and No hepatosplenomegaly present Auscultation: normal bowel sounds General: Yes no CVA tenderness Back/Spine/Pelvis Back: no CVA tenderness Skin General skin exam: elasticity normal, turgor normal and dry skin Neuro General: patient oriented x3 Psych Appearance: grossly normal Mental Status: mental status grossly normal Results Reviewed Results Reviewed: Laboratory Tests 02/23/24 02/24/24 11:36 08:29 C-Reactive Protein 0.14 Vitamin B12 719 25-OH Vitamin D Total 37 Folate 7.0 TSH 1.05 Stool Calprotectin 50 Tiss Transglutamin IgG <1.0 Tiss Transglutamin IgA <1.0 C. difficile Tox B Gene NEGATIVE Assessment & Plan Assessment & Plan (1) Colitis: Code(s): K52.9 - Noninfective gastroenteritis and colitis, unspecified Category: Medical (2) Diarrhea: Code(s): R19.7 - Diarrhea, unspecified Qualifiers: Diarrhea type: functional diarrhea Qualified Code(s): K59.1 - Functional diarrhea (3) Postprandial abdominal bloating: Code(s): R14.0 - Abdominal distension (gaseous) (4) Nausea: Code(s): R11.0 - Nausea Plan We will check GI panel and C diff. Patient will be seen in 6 weeks we will need to send her for colonoscopy. Patient will call us in 2 weeks to let us know if we should book it. Patient will call her insurance to get reinstated. Patient can take fiber with probiotics. Increase fluid intake and activity to promote better bowel motility. Patient is agreeable to current plan of care and verbalizes understanding of instructions. She was given the opportunity to ask questions and all questions answered. Thank you for allowing me to participate in her care Orders: Orders GI Panel Today R19.7 - Diarrhea, unspecified CDiff Gene PCR Today R19.7 - Diarrhea, unspecified Coding Level of Care Code Est Pt Level 4 (27107) Diagnoses Colitis K52.9 Functional diarrhea K59.1 Diarrhea type: functional diarrhea Postprandial abdominal bloating R14.0 Nausea R11.0 Time Spent (min) 35 Comment 25 minutes spent with patient and additional 10 minutes spent reviewing her records
[2024-04-26 14:00] VITALS: BP 122/72; PULSE 76; O2SAT 100; BMI 21.2
--- OUTSIDE RECORDS SUMMARY | 2024-04-26 14:34 | XMS_ITS | Clinical Summary ---
Author Organization [facility] Address [address] [place] [address] Care Team Providers Care Litigation Legal Assistant Name Role Phone Unavailable Primary Care Provider Unavailabl e Source Comments PLEASE NOTE, if this patient is a minor, it may be UNLAWFUL to discuss sensitive information that is contained in these records (such as FAMILY PLANNING, MENTAL HEALTH or SUBSTANCE ABUSE) with the minor patient's parent or other person without the patient's specific authorization.[facility] Social History Tobacco Use Types Packs/Day Years Used Date Smoking Tobacco: Never Assessed Social Connections Answer Date Recorded Connectedness 0 02/05/2024 Financial Resource Strain Answer Date R ecorded Financial Resource Strain 0 2023 Stress Answer Date Recorded Stress 0 02/05/2024 Physical Activity Answer Date Recorded Physical Activity 0 02/05/2024 Food Insecurity Answer Date Recorded Food 0 02/05/2024 Transportation Needs Answer Date Record ed Transportation 0 02/05/2024 Housing Stability Answer Date Recorded Housing 0 02/05/2024 Safety and Environment Answer Date Grant rded Safety 0 02/05/2024 Utilities Answer Date Recorded Utilities 0 02/05/2024 Employment Answer Date Recorded Stress 0 02/05/2024 Comments Unknown Sex and Gender Information Value Date Recorded Sex Assigned at Not on file Legal Sex Female 12:37 PM PST Gender Identity Not on file Sexual Orientation Not on file Plan of Treatment Upcoming Encounters Date Type Department Care Team (Late st Contact Info) Description 06/13/2024 1:30 PM EDT Office Visit [facility] [address] [place] [address] Nathan Whitlock FNP [address] [facility] [address] [place] [address] Health Maintenance Due Date Last Done Comments HPV Screening 1991 Hepatitis C Screening 1991 Pap + HPV 1991 Tobacco Screening 1991 HIV Screening 2006 Relationship Safety Screening/Counseling 2006 Hypertension Screening (#1) 2009 Imm-DTaP/Tdap/Td (1 - Tdap) 2010 Imm-Hepatitis B (1 of 3 - 19+ 3-dose series) 1 Cervical Cancer Screening 2012 Pap Smear 2012 [id number] () 11/29/2023 Imm-Influenza (#1) 2023 Alcohol and Drug Screen 03/30/2024 Depression Annual Screen 03/30/2024 Cervical Ablation/Cold-Knife Conization Discontinued Cervical Cryotherapy Discontinued Colposcopy Discontinued Endometrial Biopsy Discontinued Excision/Leep Discontinued HPV Genotyping Discontinued Vaginal Pap Discontinued Vulvoscopy Discontinued
== END 2024-04-26 16:18 | disposition home or self-care (01) ==
PROVIDERS: Visit Provider Nurse Practitioner Family
DX: K52.9 Noninfective gastroenteritis and colitis, unspecified (principal); R14.0 Abdominal distension (gaseous); R11.0 Nausea
CPT/HCPCS: 99214

== ENCOUNTER → 2024-04-26 13:34 | Outpatient (BNVA) | payer MEDICAID, SELFPAY | PROVIDERS: Visit Provider Nurse Practitioner Family | DX: K52.9 Noninfective gastroenteritis and colitis, unspecified (principal); R14.0 Abdominal distension (gaseous); R11.0 Nausea | CPT/HCPCS: 99212 ==

== ENCOUNTER 2024-04-28 11:30 | Outpatient (REF) | payer MEDICAID, SELFPAY ==
[2024-04-28 15:02] LABS: CDiff Gene PCR NEGATIVE (Negative)
--- OUTSIDE RECORDS SUMMARY | 2024-04-28 15:32 | XMS_ITS | Clinical Summary ---
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 Role Phone Unavailable Primary Care Provider [...] Description 06/13/2024 1:30 PM EDT Office Visit [facility] [address] [address] [place] [address] Nathan Whitlock FNP 162 [facility] [address] [place] [address] Health Maintenance Due Date Last Done Comments HPV Screening 1991 Hepatitis C Screening 1991 Pap + HPV 1991 Tobacco Screening 1991 HIV Screening 2006 Relationship Safety Screening/Counseling 2006 Hypertension Screening (#1) 2009 Imm-DTaP/Tdap/Td (1 - Tdap) 2010 Imm-Hepatitis B (1 of 3 - 19+ 3-dose series) 1 Cervical Cancer Screening 2012 Pap Smear 2012 [id number] () 11/29/2023 Imm-Influenza (#1) 2023 Alcohol and Drug Screen 03/30/2024 Depression Annual Screen 03/30/2024 Cervical Ablation/Cold-Knife Conization Discontinued Cervical Cryotherapy Discontinued Colposcopy Discontinued Endometrial Biopsy Discontinued Excision/Leep Discontinued HPV Genotyping Discontinued Vaginal Pap Discontinued Vulvoscopy Discontinued
[2024-04-28 15:34] LABS: Adenovirus F 40/41 Not Detected (Not Detect.); Astrovirus Not Detected (Not Detect.); Campylobacter Not Detected (Not Detect.); Cryptosporidium Not Detected (Not Detect.); Cyclospora cayetanensis Not Detected (Not Detect.); E. coli EAEC Not Detected (Not Detect.); E. coli EPEC Not Detected (Not Detect.); E. coli ETEC Not Detected (Not Detect.); E. coli STEC Not Detected (Not Detect.); Entamoeba histolytica Not Detected (Not Detect.); Giardia lamblia Not Detected (Not Detect.); Norovirus GI/GII Not Detected (Not Detect.); Plesiomonas shigelloides Not Detected (Not Detect.); Rotavirus A Not Detected (Not Detect.); Salmonella Not Detected (Not Detect.); Sapovirus Not Detected (Not Detect.); Shigella sp./EIEC Not Detected (Not Detect.); Vibrio Not Detected (Not Detect.); Vibrio Cholerae Not Detected (Not Detect.); Yersinia enterocolitica Not Detected (Not Detect.)
== END 2024-04-28 11:31 | disposition home or self-care (01) ==
LOC: HO.LAB 11:30
PROVIDERS: Visit Provider Nurse Practitioner Family
DX: R19.7 Diarrhea, unspecified (principal)
CPT/HCPCS: 87493; 87507